=== PATIENT | female | born 1985 | race Caucasian/White ===

== ENCOUNTER 2019-04-03 11:02 | Emergency (ER) | payer OTHER ==
[~2019-04-03] VITALS: Ht 157.4 cm; Wt 88.5 kg
--- NOTE | ~2019-04-03 | EKG ---
[place], [place] ELECTROCARDIOGRAM REPORT NAME: CLAUDIA GONZALEZ UNIT #: [id number] ROOM: DOCTOR: EPIPHANY DRAFT REPORT BIRTHDATE: [birth year] [facility] Test Date: 2019-04-03 Test Time: 11:22:58 Pat Name: CLAUDIA GONZALEZ Department: Room: Gender: F [employer]: : [id number] Requested By: JC CONDE Order Number: [id number] Reading MD: Hawk Lemos MD Measurements Intervals [place] Rate: 70 P: 0 NE: 180 QRS: 49 QRSD: 78 T: 18 QT: 384 QTc: 415 Interpretive Statements Sinus rhythm Low voltage, precordial leads Electronically Signed On 04-03-2019 13:41:20 PDT by Hawk Lemos MD CM:[email or web address]:ELECTROCARDIOGRAM REPORT [id number] JC CONDE MD EPIPHANY DRAFT REPORT JC CONDE MD
[2019-04-03 11:18] LABS: BASO % 0.3 % (0.0-1.0); EOS # 0.2 10*3/uL (0.0-0.4); EOS % 2.2 % (1.0-4.0); HEMATOCRIT 39.4 % (37.0-47.0); HEMOGLOBIN 13.4 g/dl (12.0-16.0); LYMPH # 2.3 10*3/uL (1.3-4.4); LYMPH % 25.5 % (27.0-41.0); MEAN CELL VOLUME 85.8 fl (81.0-99.0); MEAN CORPUSCULAR HGB 29.2 pg (27.0-31.0); MEAN PLATELET VOLUME 11.2 fl (9.6-12.3); MONO # 0.6 10*3/uL (0.1-1.0); MONO % 6.8 % (3.0-9.0); NEUT # 5.8 10*3/uL (2.3-7.9); PLATELET COUNT AUTOMATED 232 10*3/uL (130-400); RED BLOOD COUNT 4.59 10*6/uL (4.10-5.10); RED CELL DISTRI WIDTH 12.7 % (0-14.5); WHITE BLOOD COUNT 8.9 10*3/uL (4.8-10.8)
[2019-04-03 11:29] LABS: BUN 16 mg/dl (7-24); CHLORIDE 110 mmol/L (98-107); CREATININE 0.88 mg/dL (0.55-1.02); POTASSIUM 3.4 mmol/L (3.5-5.1); SODIUM 140 mmol/L (136-145)
[2019-04-03 11:41] LABS: BILIRUBIN NEGATIVE (NEGATIVE); BLOOD NEGATIVE (NEGATIVE); CLARITY SL CLOUDY (CLEAR); COLOR YELLOW (YELLOW); GLUCOSE NEGATIVE (NEGATIVE); KETONE 1+ (NEGATIVE); LEUKO ESTERASE NEGATIVE (NEGATIVE); NITRITE NEGATIVE (NEGATIVE); PH 5.5 (5.0-9.0); UROBILINOGEN 0.2 E.U./dl (0.2-1.0)
[2019-04-03 11:54] LABS: BACTERIA 3+
== END 2019-04-03 12:09 | disposition home or self-care (01) ==
LOC: ED 11:02
PROVIDERS: Emergency Medicine
DX: R55 Syncope and collapse (principal); Z91.013 Allergy to seafood